=== PATIENT | male | born 1935 | race Caucasian/White ===

== ENCOUNTER 2017-09-25 12:14 | Inpatient (IN) ==
[2017-09-25] MEDS ORDERED: SODIUM CHLORIDE 0.9% 500 ML IV STA (12:50)
[2017-09-25 13:19] LABS: Basophils % 0.1 % (0.0-0.8); Eosinophils # 0.1 10*3/uL (0.0-0.87); Eosinophils % 0.5 % (0.00-10.9); Hematocrit 31.1 VOL% (42.0-52.0); Hemoglobin 10.2 GM/DL (14.0-18.0); Immature Granulocytes % 0.5 %; Immature Granulocytes Absolute 0.05 #; Lymphocytes # 0.9 10*3/uL (1.4-4.0); Lymphocytes % 10.2 % (21.2-54.2); Mean Corpuscular HGB Conc 32.8 GM/DL (32-36); Mean Corpuscular Hemoglobin 31 PG (27-34); Mean Corpuscular Volume 95.1 FL (87-102); Mean Platelet Volume 9.2 FL (9.6-12.0); Monocytes # 0.4 10*3/uL (0.11-0.8); Monocytes % 4.6 % (1.7-12.7); Neutrophils # 7.7 10*3/uL (1.4-7.4); Neutrophils % 84.1 % (38.7-73.9); Platelet Count 185 T/CUMM (130-400); Red Blood Count 3.27 MC/CUMM (3.8-5.5); Red Cell Distribution Width 15.5 % (9.3-17.3); White Blood Count 9.2 T/CUMM (4-12)
[2017-09-25 13:56] LABS: Albumin 2.4 G/DL (3.4-5.0); Bilirubin,Total 0.4 MG/DL (0.2-1.0); Calcium 8.1 MG/DL (8.5-10.1); Osmolality,Calculated 281.3 MOS/KG (273-304); Potassium 3.6 MMOL/L (3.5-5.1); Total Protein 6.2 G/DL (6.4-8.3)
[2017-09-25 14:17] LABS: Apearance,Urine CLEAR (Clear); Bilirubin,Urine Negative (Negative); Blood, Urine Negative (Negative); Glucose,Urine (UA) Negative (Negative); Ketones,Urine Negative (Negative); Mucus,Urine Occasional /LPF (Occasional); Nitrite,Urine Negative (Negative); Protein,Urine Negative; RBC,Urine <1 /HPF (0-4); Squamous Epithelial Cell,Urine Occasional /HPF (0-10); Urine Color Yellow (Yellow); Urine Urobilinogen < 2.0 EU/DL (0.2-1.0); WBC,Urine 3 /HPF (0-6)
[2017-09-25] MEDS ORDERED: cefTRIAXone 1,000 MG in SODIUM CHLORIDE 0.9% 100 ML IV STA (14:41)
[2017-09-25] MEDS ORDERED: DEXTROSE 50% 25 GM/50 ML VIAL IV STA (14:41)
[2017-09-25] MEDS ORDERED: DEXTROSE 50% 25 GM/50 ML SYRINGE IV ONE (15:17)
[2017-09-25] MEDS ORDERED: cefTRIAXone 1,000 MG VIAL ONE (15:17)
[2017-09-25] MEDS ORDERED: VANCOMYCIN INJ 1,000 MG in SODIUM CHLORIDE 0.9% 250 ML IV STA (17:23)
[2017-09-25] MEDS ORDERED: VANCOMYCIN 1,000 MG VIAL ONE (17:37)
[2017-09-25] MEDS ORDERED: SODIUM CHLORIDE 0.9% 250 ML IV ONE (17:37)
[2017-09-25] MEDS ORDERED: ONDANSETRON 4 MG/2 ML VIAL IV PRN (22:14)
[2017-09-25] MEDS ORDERED: ZALEPLON 5 MG CAPSULE PO PRN (22:14)
[2017-09-25] MEDS ORDERED: ACETAMINOPHEN 325 MG TABLET PO PRN (22:14)
[2017-09-25] MEDS: DOCUSATE SODIUM 100 MG CAPSULE PO SCH (23:15)
[2017-09-25] MEDS: TAMSULOSIN 0.4 MG CAPSULE PO SCH (23:28)
[2017-09-25] MEDS: risperiDONE 1 MG TABLET PO SCH (23:28)
[2017-09-25] MEDS: ROSUVASTATIN 10 MG TABLET PO SCH (23:28)
[2017-09-25] MEDS: ESCITALOPRAM 10 MG TABLET PO SCH (23:29)
[2017-09-25] MEDS: METOPROLOL TARTRATE 50 MG TABLET PO SCH (23:37)
[2017-09-25] MEDS: SODIUM CHLORIDE 0.9% 1,000 ML IV SCH (23:37)
[2017-09-25] MEDS: ALLOPURINOL 300 MG TABLET PO SCH (23:37)
[2017-09-26 06:42] LABS: Basophils % 0.2 % (0.0-0.8); Eosinophils % 0.5 % (0.00-10.9); Hematocrit 28.4 VOL% (42.0-52.0); Hemoglobin 9.2 GM/DL (14.0-18.0); Immature Granulocytes % 0.3 %; Immature Granulocytes Absolute 0.02 #; Lymphocytes # 0.9 10*3/uL (1.4-4.0); Lymphocytes % 13.2 % (21.2-54.2); Mean Corpuscular HGB Conc 32.4 GM/DL (32-36); Mean Corpuscular Hemoglobin 31 PG (27-34); Mean Corpuscular Volume 95.9 FL (87-102); Mean Platelet Volume 9.3 FL (9.6-12.0); Monocytes # 0.3 10*3/uL (0.11-0.8); Monocytes % 4.6 % (1.7-12.7); Neutrophils # 5.3 10*3/uL (1.4-7.4); Neutrophils % 81.2 % (38.7-73.9); Platelet Count 177 T/CUMM (130-400); Red Blood Count 2.96 MC/CUMM (3.8-5.5); Red Cell Distribution Width 15.4 % (9.3-17.3); White Blood Count 6.6 T/CUMM (4-12)
[2017-09-26 07:10] LABS: Calcium 7.7 MG/DL (8.5-10.1); Osmolality,Calculated 286.8 MOS/KG (273-304); Potassium 3.3 MMOL/L (3.5-5.1)
[2017-09-26] MEDS: PANTOPRAZOLE 40 MG TABLET PO SCH (09:48)
[2017-09-26] MEDS: FUROSEMIDE 40 MG TABLET PO SCH (09:48)
[2017-09-26] MEDS: DOCUSATE SODIUM 100 MG CAPSULE PO SCH ×2 (09:49→21:44)
[2017-09-26] MEDS: POTASSIUM CHLORIDE 10 MEQ TABLET PO SCH (09:49)
[2017-09-26] MEDS ORDERED: SKIN HEALING OINT (AQUAPHOR) 50 GM TUBE TOP PRN (10:33)
[2017-09-26] MEDS ORDERED: CHLORHEXIDINE 4% SOLN 118 ML BOTTLE TOP ONE (10:33)
[2017-09-26] MEDS: SODIUM HYPOCHLORITE 0.25% IRRIG 473 ML BOTTLE TOP SCH (12:53)
[2017-09-26] MEDS: VANCOMYCIN INJ 1,000 MG in SODIUM CHLORIDE 0.9% 250 ML IV SCH ×2 (12:53→23:17)
[2017-09-26] MEDS: SODIUM CHLORIDE 0.9% 1,000 ML IV SCH ×2 (19:00→23:17)
[2017-09-26] MEDS: ROSUVASTATIN 10 MG TABLET PO SCH (21:42)
[2017-09-26] MEDS: METOPROLOL TARTRATE 50 MG TABLET PO SCH (21:43)
[2017-09-26] MEDS: risperiDONE 1 MG TABLET PO SCH (21:43)
[2017-09-26] MEDS: ALLOPURINOL 300 MG TABLET PO SCH (21:43)
[2017-09-26] MEDS: ESCITALOPRAM 10 MG TABLET PO SCH (21:43)
[2017-09-26] MEDS: TAMSULOSIN 0.4 MG CAPSULE PO SCH (21:44)
[2017-09-26] MEDS: MUPIROCIN 2% OINT 22 GM TUBE TOP SCH (21:49)
[2017-09-27] MEDS: SODIUM CHLORIDE 0.9% 1,000 ML IV SCH ×2 (06:44→12:55)
[2017-09-27 06:49] LABS: Basophils % 0.2 % (0.0-0.8); Eosinophils % 0.6 % (0.00-10.9); Hemoglobin 8.2 GM/DL (14.0-18.0); Immature Granulocytes % 0.4 %; Immature Granulocytes Absolute 0.02 #; Lymphocytes % 19.2 % (21.2-54.2); Mean Corpuscular HGB Conc 32.8 GM/DL (32-36); Mean Corpuscular Hemoglobin 31 PG (27-34); Mean Corpuscular Volume 94.3 FL (87-102); Mean Platelet Volume 9.2 FL (9.6-12.0); Monocytes # 0.3 10*3/uL (0.11-0.8); Neutrophils % 73.6 % (38.7-73.9); Platelet Count 156 T/CUMM (130-400); Red Blood Count 2.65 MC/CUMM (3.8-5.5); Red Cell Distribution Width 15.2 % (9.3-17.3); White Blood Count 5.4 T/CUMM (4-12)
[2017-09-27 07:19] LABS: Calcium 7.6 MG/DL (8.5-10.1); Osmolality,Calculated 288.6 MOS/KG (273-304); Potassium 3.1 MMOL/L (3.5-5.1)
[2017-09-27 10:58] LABS: Basophils % 0.2 % (0.0-0.8); Eosinophils % 0.9 % (0.00-10.9); Hematocrit 26.3 VOL% (42.0-52.0); Hemoglobin 8.4 GM/DL (14.0-18.0); Immature Granulocytes % 0.4 %; Immature Granulocytes Absolute 0.02 #; Lymphocytes # 1.1 10*3/uL (1.4-4.0); Mean Corpuscular HGB Conc 31.9 GM/DL (32-36); Mean Corpuscular Hemoglobin 31 PG (27-34); Mean Corpuscular Volume 96.3 FL (87-102); Mean Platelet Volume 9.5 FL (9.6-12.0); Monocytes # 0.3 10*3/uL (0.11-0.8); Monocytes % 5.6 % (1.7-12.7); Neutrophils # 3.2 10*3/uL (1.4-7.4); Neutrophils % 68.9 % (38.7-73.9); Platelet Count 158 T/CUMM (130-400); Red Blood Count 2.73 MC/CUMM (3.8-5.5); Red Cell Distribution Width 15.4 % (9.3-17.3); White Blood Count 4.6 T/CUMM (4-12)
[2017-09-27 11:32] LABS: Folate 5.6 NG/ML (5.4-24.0); Vitamin B12 686 PG/ML (211-911)
[2017-09-27] MEDS: SODIUM HYPOCHLORITE 0.25% IRRIG 473 ML BOTTLE TOP SCH (11:47)
[2017-09-27] MEDS: MUPIROCIN 2% OINT 22 GM TUBE TOP SCH ×2 (11:47→22:04)
[2017-09-27] MEDS: POTASSIUM CHLORIDE 10 MEQ TABLET PO SCH (11:48)
[2017-09-27] MEDS: PANTOPRAZOLE 40 MG TABLET PO SCH (11:49)
[2017-09-27] MEDS: FUROSEMIDE 40 MG TABLET PO SCH (11:49)
[2017-09-27] MEDS: DOCUSATE SODIUM 100 MG CAPSULE PO SCH ×2 (11:49→22:03)
[2017-09-27] MEDS: SODIUM CHLOR 0.45% KCL 20 MEQ 20 MEQ/1,000 ML BAG IV SCH ×2 (11:49→22:17)
[2017-09-27] MEDS: VANCOMYCIN INJ 1,000 MG in SODIUM CHLORIDE 0.9% 250 ML IV SCH ×2 (12:00→22:18)
[2017-09-27 12:11] LABS: Sedimentation Rate-Westergren 86 MM/HR (0-20)
[2017-09-27] MEDS: ROSUVASTATIN 10 MG TABLET PO SCH (22:02)
[2017-09-27] MEDS: TAMSULOSIN 0.4 MG CAPSULE PO SCH (22:02)
[2017-09-27] MEDS: risperiDONE 1 MG TABLET PO SCH (22:03)
[2017-09-27] MEDS: ESCITALOPRAM 10 MG TABLET PO SCH (22:03)
[2017-09-27] MEDS: METOPROLOL TARTRATE 50 MG TABLET PO SCH (22:04)
[2017-09-27] MEDS: ALLOPURINOL 300 MG TABLET PO SCH (22:06)
[2017-09-28 05:22] LABS: Calcium 7.3 MG/DL (8.5-10.1); Potassium 3.7 MMOL/L (3.5-5.1)
[2017-09-28 06:14] LABS: Basophils % 0.2 % (0.0-0.8); Eosinophils # 0.1 10*3/uL (0.0-0.87); Hematocrit 24.8 VOL% (42.0-52.0); Hemoglobin 8.1 GM/DL (14.0-18.0); Immature Granulocytes % 0.6 %; Immature Granulocytes Absolute 0.03 #; Lymphocytes # 1.2 10*3/uL (1.4-4.0); Lymphocytes % 22.6 % (21.2-54.2); Mean Corpuscular HGB Conc 32.7 GM/DL (32-36); Mean Corpuscular Hemoglobin 31 PG (27-34); Mean Corpuscular Volume 94.3 FL (87-102); Monocytes # 0.4 10*3/uL (0.11-0.8); Monocytes % 6.8 % (1.7-12.7); Neutrophils # 3.6 10*3/uL (1.4-7.4); Neutrophils % 68.8 % (38.7-73.9); Platelet Count 163 T/CUMM (130-400); Red Blood Count 2.63 MC/CUMM (3.8-5.5); Red Cell Distribution Width 15.3 % (9.3-17.3); White Blood Count 5.3 T/CUMM (4-12)
[2017-09-28] MEDS: SODIUM CHLOR 0.45% KCL 20 MEQ 20 MEQ/1,000 ML BAG IV SCH ×2 (10:29→21:55)
[2017-09-28] MEDS: PANTOPRAZOLE 40 MG TABLET PO SCH (10:30)
[2017-09-28] MEDS: POTASSIUM CHLORIDE 10 MEQ TABLET PO SCH (10:30)
[2017-09-28] MEDS: DOCUSATE SODIUM 100 MG CAPSULE PO SCH ×2 (10:30→21:47)
[2017-09-28] MEDS: MUPIROCIN 2% OINT 22 GM TUBE TOP SCH ×2 (10:31→21:49)
[2017-09-28] MEDS: FUROSEMIDE 40 MG TABLET PO SCH (10:31)
[2017-09-28] MEDS: SODIUM HYPOCHLORITE 0.25% IRRIG 473 ML BOTTLE TOP SCH (10:31)
[2017-09-28] MEDS: VANCOMYCIN INJ 1,000 MG in SODIUM CHLORIDE 0.9% 250 ML IV SCH (10:47)
[2017-09-28] MEDS: ROSUVASTATIN 10 MG TABLET PO SCH (21:47)
[2017-09-28] MEDS: TAMSULOSIN 0.4 MG CAPSULE PO SCH (21:47)
[2017-09-28] MEDS: METOPROLOL TARTRATE 50 MG TABLET PO SCH (21:48)
[2017-09-28] MEDS: risperiDONE 1 MG TABLET PO SCH (21:48)
[2017-09-28] MEDS: ALLOPURINOL 300 MG TABLET PO SCH (21:49)
[2017-09-28] MEDS: ESCITALOPRAM 10 MG TABLET PO SCH (21:49)
[2017-09-28] MEDS: VANCOMYCIN INJ 1,000 MG in SODIUM CHLORIDE 0.45% 250 ML IV SCH (23:10)
[2017-09-29 07:01] LABS: Basophils % 0.4 % (0.0-0.8); Eosinophils % 0.7 % (0.00-10.9); Hematocrit 27.4 VOL% (42.0-52.0); Hemoglobin 9.2 GM/DL (14.0-18.0); Immature Granulocytes % 0.4 %; Immature Granulocytes Absolute 0.02 #; Lymphocytes # 1.4 10*3/uL (1.4-4.0); Lymphocytes % 25.1 % (21.2-54.2); Mean Corpuscular HGB Conc 33.6 GM/DL (32-36); Mean Corpuscular Hemoglobin 31 PG (27-34); Mean Corpuscular Volume 91.9 FL (87-102); Mean Platelet Volume 9.9 FL (9.6-12.0); Monocytes # 0.4 10*3/uL (0.11-0.8); Monocytes % 7.5 % (1.7-12.7); Neutrophils # 3.6 10*3/uL (1.4-7.4); Neutrophils % 65.9 % (38.7-73.9); Platelet Count 163 T/CUMM (130-400); Red Blood Count 2.98 MC/CUMM (3.8-5.5); Red Cell Distribution Width 14.9 % (9.3-17.3); White Blood Count 5.5 T/CUMM (4-12)
[2017-09-29 07:40] LABS: Calcium 7.7 MG/DL (8.5-10.1); Osmolality,Calculated 277.3 MOS/KG (273-304); Potassium 3.6 MMOL/L (3.5-5.1)
[2017-09-29 07:40] LABS: Hemoglobin A1 (Alkaline) 97.6 % (96.5-98.5); Hemoglobin A2 (Alkaline) 2.4 % (1.5-3.5)
[2017-09-29] MEDS: POTASSIUM CHLORIDE 10 MEQ TABLET PO SCH (08:55)
[2017-09-29] MEDS: PANTOPRAZOLE 40 MG TABLET PO SCH (08:55)
[2017-09-29] MEDS: FUROSEMIDE 40 MG TABLET PO SCH (08:55)
[2017-09-29] MEDS: DOCUSATE SODIUM 100 MG CAPSULE PO SCH ×2 (08:55→23:11)
[2017-09-29] MEDS: risperiDONE 1 MG TABLET PO SCH ×2 (08:55→23:12)
[2017-09-29] MEDS: HALOPERIDOL 5 MG/ML AMP IV PRN ×2 (08:56→15:31)
[2017-09-29] MEDS ORDERED: TUBERCULIN SKIN TEST 0.1 ML SYRINGE INTRADERM ONE (09:00)
[2017-09-29] MEDS: VANCOMYCIN INJ 1,000 MG in SODIUM CHLORIDE 0.45% 250 ML IV SCH ×2 (11:00→23:15)
[2017-09-29] MEDS: MUPIROCIN 2% OINT 22 GM TUBE TOP SCH ×2 (11:51→23:11)
[2017-09-29] MEDS: SODIUM HYPOCHLORITE 0.25% IRRIG 473 ML BOTTLE TOP SCH (11:52)
[2017-09-29] MEDS: SODIUM CHLOR 0.45% KCL 20 MEQ 20 MEQ/1,000 ML BAG IV SCH (15:30)
[2017-09-29] MEDS: TAMSULOSIN 0.4 MG CAPSULE PO SCH (23:12)
[2017-09-29] MEDS: ALLOPURINOL 300 MG TABLET PO SCH (23:12)
[2017-09-29] MEDS: METOPROLOL TARTRATE 50 MG TABLET PO SCH (23:12)
[2017-09-29] MEDS: ROSUVASTATIN 10 MG TABLET PO SCH (23:12)
[2017-09-29] MEDS: ESCITALOPRAM 10 MG TABLET PO SCH (23:12)
[2017-09-30] MEDS: SODIUM CHLOR 0.45% KCL 20 MEQ 20 MEQ/1,000 ML BAG IV SCH ×2 (03:55→20:36)
[2017-09-30] MEDS: POTASSIUM CHLORIDE 10 MEQ TABLET PO SCH (09:35)
[2017-09-30] MEDS: DOCUSATE SODIUM 100 MG CAPSULE PO SCH ×2 (09:36→21:40)
[2017-09-30] MEDS: PANTOPRAZOLE 40 MG TABLET PO SCH (09:36)
[2017-09-30] MEDS: risperiDONE 1 MG TABLET PO SCH ×2 (09:36→21:41)
[2017-09-30] MEDS: SODIUM HYPOCHLORITE 0.25% IRRIG 473 ML BOTTLE TOP SCH (09:36)
[2017-09-30] MEDS: FUROSEMIDE 40 MG TABLET PO SCH (09:36)
[2017-09-30] MEDS: MUPIROCIN 2% OINT 22 GM TUBE TOP SCH ×2 (09:37→21:40)
[2017-09-30] MEDS: VANCOMYCIN INJ 1,000 MG in SODIUM CHLORIDE 0.45% 250 ML IV SCH ×2 (10:23→23:10)
[2017-09-30] MEDS: METOPROLOL TARTRATE 50 MG TABLET PO SCH (21:41)
[2017-09-30] MEDS: ESCITALOPRAM 10 MG TABLET PO SCH (21:41)
[2017-09-30] MEDS: TAMSULOSIN 0.4 MG CAPSULE PO SCH (21:41)
[2017-09-30] MEDS: ROSUVASTATIN 10 MG TABLET PO SCH (21:41)
[2017-09-30] MEDS: ALLOPURINOL 300 MG TABLET PO SCH (21:42)
[2017-10-01] MEDS: POTASSIUM CHLORIDE 10 MEQ TABLET PO SCH (09:40)
[2017-10-01] MEDS: FUROSEMIDE 40 MG TABLET PO SCH (09:40)
[2017-10-01] MEDS: PANTOPRAZOLE 40 MG TABLET PO SCH (09:40)
[2017-10-01] MEDS: DOCUSATE SODIUM 100 MG CAPSULE PO SCH (09:41)
[2017-10-01] MEDS: SODIUM HYPOCHLORITE 0.25% IRRIG 473 ML BOTTLE TOP SCH (09:42)
[2017-10-01] MEDS: risperiDONE 1 MG TABLET PO SCH (09:42)
[2017-10-01] MEDS: MUPIROCIN 2% OINT 22 GM TUBE TOP SCH (09:42)
[2017-10-01 12:01] VITALS: BP 135/52
== END 2017-10-01 12:10 | DRG 605 ==
LOC: EDBD → EDUNIT# → N.ED 12:14 → N.EDINP 12:14 → OBSVTOIN 15:47 → N.2E 19:56
PROVIDERS: ADMIT Internal Medicine; ATTEND Internal Medicine